=== PATIENT | female | born 1990 | race African-American/Black ===

== ENCOUNTER 2020-06-13 09:51 | Outpatient (CLI) | payer OTHER ==
--- NOTE | 2020-06-13 10:21 | RAD ---
Right knee 3 views: 06/13/2020 COMPARISON: None HISTORY: Arthritis, acute knee pain FINDINGS: No fracture or dislocation. No radiopaque foreign body or subcutaneous gas. No knee joint e ffusion. IMPRESSION: No acute findings.
== END 2020-06-13 09:52 | disposition home or self-care (01) ==
LOC: MADLAB 09:51 → MADRAD 09:52
PROVIDERS: ATTEND Orthopaedic Surgery
DX: M19.90 Unspecified osteoarthritis, unspecified site (principal)